=== PATIENT | male | born 1940 | race Caucasian/White ===

== ENCOUNTER 2018-12-10 09:38 | Emergency (ER) | payer OTHER ==
[~2018-12-10] VITALS: Ht 175.3 cm; Wt 77.8 kg
[2018-12-10 09:44] VITALS: Ht 175.3 cm; Wt 77.8 kg
[2018-12-10 10:26] VITALS: BP 171/86
== END 2018-12-10 10:26 | disposition home or self-care (01) ==
LOC: ED 09:38
DX: H10.31 Unspecified acute conjunctivitis, right eye (principal); I10 Essential (primary) hypertension; Z98.890 Other specified postprocedural states